=== PATIENT | female | born 2000 | race Caucasian/White ===

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

== ENCOUNTER 2018-11-24 17:50 | Emergency (ER) | payer OTHER ==
--- NOTE | 2018-11-24 18:23 | EDM.PDOC ---
ED HPI GENERAL MEDICAL PROBLEM - General Chief Complaint: Genitourinary Problem Stated Complaint: UTI Time Seen by Provider: 11/24/18 18:05 - History of Present Illness INITIAL COMMENTS - FREE TEXT/NARRATIVE: HISTORY AND PHYSICAL: History of present illness: Patient 18-year-old white female presents with concern of frequency discomfort with urination and hesitancy 2 days his been no fever chills nausea vomiting or other complaints Review of systems: As per history of present illness and below otherwise all systems reviewed and negative. Past medical history: As per history of present illness and as reviewed below otherwise noncontributory. Surgical history: As per history of present illness and as reviewed below otherwise noncontributory. Social history: No reported history of drug or alcohol abuse. Family history: As per history of present illness and as reviewed below otherwise noncontributory. Physical exam: HEENT: Atraumatic, normocephalic, pupils reactive, negative for conjunctival pallor or scleral icterus, mucous membranes moist, throat clear, neck supple, nontender, trachea midline. Lungs: Clear to auscultation, breath sounds equal bilaterally, chest nontender. Heart: S1S2, regular, negative for clicks, rubs, or JVD. Abdomen: Soft, nondistended, nontender. Negative for masses or hepatosplenomegaly. Negative for costovertebral tenderness. Pelvis: Stable nontender. Genitourinary: Deferred. Rectal: Deferred. Extremities: Atraumatic, negative for cords or calf pain. Neurovascular unremarkable. Neuro: Awake, alert, oriented. Cranial nerves II through XII unremarkable. Cerebellum unremarkable. Motor and sensory unremarkable throughout. Exam nonfocal. Diagnostics: UA UCG Therapeutics: None Impression: #1 UTI Definitive disposition and diagnosis as appropriate pending reevaluation and review of above. urinary Pain Score (Numeric/FACES): 7 - Related Data Allergies Allergy/AdvReac Type Severity Reaction Status Date / Time sumatriptan [From Imitrex] Allergy Tachycardia Verified 11/24/18 18:11 Home Meds: Home Meds . [No Known Home Meds] 12/27/17 [History] Past Medical History HEENT History: Reports: None Cardiovascular History: Reports: None Respiratory History: Reports: None Gastrointestinal History: Reports: None Genitourinary History: Reports: None COMPUTATIONAL MATHEMATICIAN History: Reports: None Musculoskeletal History: Reports: None Neurological History: Reports: None Psychiatric History: Reports: None Endocrine/Metabolic History: Reports: Other (See Below) Other Endocrine/Metabolic History: Angel's Hematologic History: Reports: None Immunologic History: Reports: None Oncologic (Cancer) History: Reports: None Dermatologic History: Reports: None - Past Surgical History Head Surgeries/Procedures: Reports: None HEENT Surgical History: Reports: Oral Surgery, Tonsillectomy Cardiovascular Surgical History: Reports: None Respiratory Surgical History: Reports: None GI Surgical History: Reports: None Female Surgical History: Reports: None Endocrine Surgical History: Reports: None Neurological Surgical History: Reports: None Musculoskeletal Surgical History: Reports: Other (See Below) Other Musculoskeletal Surgeries/Procedures:: surgery to her feet, 5x left, 2x Right Oncologic Surgical History: Reports: None Dermatological Surgical History: Reports: None Social & Family History - Family History Family Medical History: Noncontributory - Tobacco Use Smoking Status *Q: Never Smoker Second Hand Smoke Exposure: No - Caffeine Use Caffeine Use: Reports: None - Recreational Drug Use Recreational Drug Use: No ED ROS GENERAL - Review of Systems Review Of Systems: ROS reveals no pertinent complaints other than HPI. ED EXAM, GENERAL - Physical Exam Exam: See Below (See dictation) Course - Vital Signs Last Recorded V/S: Last Vital Signs Temp 37.6 C 11/24/18 18:10 Pulse 140 H 11/24/18 18:10 Resp 18 11/24/18 18:10 BP 143/98 H 11/24/18 18:10 Pulse Ox 95 11/24/18 18:10 - Orders/Labs/Meds Orders: Active Orders 24 hr Category Date Time Status CULTURE URINE [RM] Stat Lab 11/24/18 18:17 Ordered HCG QUALITATIVE,URINE [URCHEM] Stat Lab 11/24/18 18:18 Ordered UA RFX JENI AND CULT IF INDIC [URIN] Stat Lab 11/24/18 18:17 Ordered Meds: Medications Discontinued Medications Generic Name Dose Route Start Last Admin Trade Name Freq PRN Reason Stop Dose Admin Ketorolac Tromethamine 60 mg 11/24/18 18:56 Toradol IM 11/24/18 18:57 ONETIME ONE Phenazopyridine HCl 200 mg 11/24/18 18:56 Pyridium PO 11/24/18 18:57 ONETIME ONE Departure - Departure Time of Disposition: 19:00 Disposition: Home, Self-Care 01 Condition: Good Clinical Impression: UTI, Urinary tract infectious disease - Discharge Information Referrals: PCP,None [Primary Care Provider] - Forms: ED Department Discharge Additional Instructions: The following information is given to patients seen in the emergency department who are being discharged to home. This information is to outline your options for follow-up care. We provide all patients seen in our emergency department with a follow-up referral. The need for follow-up, as well as the timing and circumstances, are variable depending upon the specifics of your emergency department visit. If you don't have a primary care physician on staff, we will provide you with a referral. We always advise you to contact your personal physician following an emergency department visit to inform them of the circumstance of the visit and for follow-up with them and/or the need for any referrals to a consulting specialist. The emergency department will also refer you to a specialist when appropriate. This referral assures that you have the opportunity for followup care with a specialist. All of these measure are taken in an effort to provide you with optimal care, which includes your followup. Under all circumstances we always encourage you to contact your private physician who remains a resource for coordinating your care. When calling for followup care, please make the office aware that this follow-up is from your recent emergency room visit. If for any reason you are refused follow-up, please contact the [facility] emergency department at and asked to speak to the emergency department charge nurse. Pyridium Bactrim as prescribed follow-up primary medical doctor return as needed as discussed - My Orders Last 24 Hours: My Active Orders 11/24/18 18:17 CULTURE URINE [RM] Stat UA RFX JENI AND CULT IF INDIC [URIN] Stat 11/24/18 18:18 HCG QUALITATIVE,URINE [URCHEM] Stat - Assessment/Plan Last 24 Hours: My Active Orders 11/24/18 18:17 CULTURE URINE [RM] Stat UA RFX JENI AND CULT IF INDIC [URIN] Stat 11/24/18 18:18 HCG QUALITATIVE,URINE [URCHEM] Stat
[2018-11-24] MEDS ORDERED: Phenazopyridine 200 MG Tab PO ONE (18:56)
[2018-11-24] MEDS ORDERED: Ketorolac 60 MG/2 ML SDV IM ONE (18:56)
== END 2018-11-24 19:50 | disposition home or self-care (01) ==
LOC: MW.ED 17:50
DX: N39.0 Urinary tract infection, site not specified (principal); Z88.8 Allergy status to other drugs, medicaments and biological substances
CPT/HCPCS: 81001; 81025; 87086; 96372; 99283; A9270; J1885

== ENCOUNTER 2018-12-25 03:02 | Emergency (ER) | payer OTHER ==
[2018-12-25] MEDS ORDERED: Ondansetron 4 MG/2 ML SDV IVPUSH ONE (03:16)
[2018-12-25] MEDS ORDERED: Sodium Chloride 0.9% 1,000 ML IV ONE (03:16)
--- NOTE | 2018-12-25 03:16 | EDM.PDOC ---
ED HPI GENERAL MEDICAL PROBLEM - General Chief Complaint: Gastrointestinal Problem Stated Complaint: VOMITING Time Seen by Provider: 12/25/18 03:13 - History of Present Illness INITIAL COMMENTS - FREE TEXT/NARRATIVE: HISTORY AND PHYSICAL: History of present illness: Patient is a 18-year-old female presents with a concern of nausea and vomiting 2 days she denies abdominal pain fever chills vaginal discharge bleeding or other concerns she has currently undergoing fertility treatment. Review of systems: As per history of present illness and below otherwise all systems reviewed and negative. Past medical history: As per history of present illness and as reviewed below otherwise noncontributory. Surgical history: As per history of present illness and as reviewed below otherwise noncontributory. Social history: No reported history of drug or alcohol abuse. Family history: As per history of present illness and as reviewed below otherwise noncontributory. Physical exam: HEENT: Atraumatic, normocephalic, pupils reactive, negative for conjunctival pallor or scleral icterus, mucous membranes dry, throat clear, neck supple, nontender, trachea midline. Lungs: Clear to auscultation, breath sounds equal bilaterally, chest nontender. Heart: S1S2, regular, negative for clicks, rubs, or JVD. Abdomen: Soft, nondistended, nontender. Negative for masses or hepatosplenomegaly. Negative for costovertebral tenderness. Pelvis: Stable nontender. Genitourinary: Deferred. Rectal: Deferred. Extremities: Atraumatic, negative for cords or calf pain. Neurovascular unremarkable. Neuro: Awake, alert, oriented. Cranial nerves II through XII unremarkable. Cerebellum unremarkable. Motor and sensory unremarkable throughout. Exam nonfocal. Diagnostics: CBC CMP UA lipase hCG Therapeutics: Normal saline 1 L bolus Zofran 4 mg IV Impression: #1 vomiting #2 dehydration Definitive disposition and diagnosis as appropriate pending reevaluation and review of above. no pain Pain Score (Numeric/FACES): 0 - Related Data Allergies Allergy/AdvReac Type Severity Reaction Status Date / Time sumatriptan [From Imitrex] Allergy Tachycardia Verified 12/25/18 03:08 Home Meds: Home Meds . [No Known Home Meds] 12/27/17 [History] Past Medical History HEENT History: Reports: None Cardiovascular History: Reports: None Respiratory History: Reports: None Gastrointestinal History: Reports: None Genitourinary History: Reports: None AURICULAR ACUPUNCTURIST History: Reports: None Musculoskeletal History: Reports: None Neurological History: Reports: None Psychiatric History: Reports: None Endocrine/Metabolic History: Reports: Other (See Below) Other Endocrine/Metabolic History: Angel's Hematologic History: Reports: None Immunologic History: Reports: None Oncologic (Cancer) History: Reports: None Dermatologic History: Reports: None - Past Surgical History Head Surgeries/Procedures: Reports: None HEENT Surgical History: Reports: Oral Surgery, Tonsillectomy Cardiovascular Surgical History: Reports: None Respiratory Surgical History: Reports: None GI Surgical History: Reports: None Female Surgical History: Reports: None Endocrine Surgical History: Reports: None Neurological Surgical History: Reports: None Musculoskeletal Surgical History: Reports: Other (See Below) Other Musculoskeletal Surgeries/Procedures:: surgery to her feet, 5x left, 2x Right Oncologic Surgical History: Reports: None Dermatological Surgical History: Reports: None Social & Family History - Family History Family Medical History: Noncontributory - Caffeine Use Caffeine Use: Reports: None ED ROS GENERAL - Review of Systems Review Of Systems: ROS reveals no pertinent complaints other than HPI. ED EXAM, GENERAL - Physical Exam Exam: See Below Course - Vital Signs Last Recorded V/S: Last Vital Signs Temp 36.1 C 12/25/18 03:08 Pulse 126 H 12/25/18 03:08 Resp 18 12/25/18 03:08 BP 146/81 H 12/25/18 03:08 Pulse Ox 96 12/25/18 03:08 Departure - Departure Time of Disposition: 03:15 Disposition: Home, Self-Care 01 Condition: Good Clinical Impression: Vomiting, Dehydration - Discharge Information Referrals: PCP,None [Primary Care Provider] - Additional Instructions: The following information is given to patients seen in the emergency department who are being discharged to home. This information is to outline your options for follow-up care. We provide all patients seen in our emergency department with a follow-up referral. The need for follow-up, as well as the timing and circumstances, are variable depending upon the specifics of your emergency department visit. If you don't have a primary care physician on staff, we will provide you with a referral. We always advise you to contact your personal physician following an emergency department visit to inform them of the circumstance of the visit and for follow-up with them and/or the need for any referrals to a consulting specialist. The emergency department will also refer you to a specialist when appropriate. This referral assures that you have the opportunity for followup care with a specialist. All of these measure are taken in an effort to provide you with optimal care, which includes your followup. Under all circumstances we always encourage you to contact your private physician who remains a resource for coordinating your care. When calling for followup care, please make the office aware that this follow-up is from your recent emergency room visit. If for any reason you are refused follow-up, please contact the [facility] emergency department at and asked to speak to the emergency department charge nurse. Push fluids clear liquids 24 hours follow-up private medical doctor as needed as discussed return as needed as discussed Griceldafran as prescribed
[2018-12-25 03:53] LABS: CHLORIDE,CL 103 mmol/L (98-107); SODIUM,NA 139 mmol/L (136-145)
== END 2018-12-25 04:10 | disposition home or self-care (01) ==
LOC: MW.ED 03:02
DX: E86.0 Dehydration (principal); R11.2 Nausea with vomiting, unspecified; Z88.8 Allergy status to other drugs, medicaments and biological substances; Z98.890 Other specified postprocedural states
CPT/HCPCS: 36415; 80053; 81025; 83690; 85025; 96374; 99283; J2405; J7040

== ENCOUNTER 2019-07-29 00:18 | Emergency (ER) | payer OTHER ==
--- NOTE | 2019-07-29 01:30 | EDM.PDOC ---
ED HPI GENERAL MEDICAL PROBLEM - General Chief Complaint: General Stated Complaint: SOB Time Seen by Provider: 07/29/19 01:25 Source of Information: Reports: Patient History Limitations: Reports: No Limitations - History of Present Illness INITIAL COMMENTS - FREE TEXT/NARRATIVE: Old female presents the emergency room with a chief complaint of being woken up by her boyfriend because she was gasping while sleeping. Patient had no symptoms at all. Patient denies chest pain denies shortness of breath patient has a BMI of 40. Onset: Today Duration: Hour(s):, Improving Severity: Mild Improves with: Reports: None Worsens with: Reports: None Associated Symptoms: Reports: No Other Symptoms Chest Pain Score (Numeric/FACES): 2 - Related Data Allergies Allergy/AdvReac Type Severity Reaction Status Date / Time sumatriptan [From Imitrex] Allergy Tachycardia Verified 07/29/19 00:39 Home Meds: Home Meds . [No Known Home Meds] 12/27/17 [History] Past Medical History HEENT History: Reports: None Cardiovascular History: Reports: None Respiratory History: Reports: None Gastrointestinal History: Reports: None Genitourinary History: Reports: None AUDITOR SUPERVISOR History: Reports: Polycystic Ovaries Musculoskeletal History: Reports: None Neurological History: Reports: None Psychiatric History: Reports: None Endocrine/Metabolic History: Reports: Other (See Below) Other Endocrine/Metabolic History: Angel's Hematologic History: Reports: None Immunologic History: Reports: None Oncologic (Cancer) History: Reports: None Dermatologic History: Reports: None - Infectious Disease History Infectious Disease History: Reports: None - Past Surgical History Head Surgeries/Procedures: Reports: None HEENT Surgical History: Reports: Oral Surgery, Tonsillectomy Cardiovascular Surgical History: Reports: None Respiratory Surgical History: Reports: None GI Surgical History: Reports: None Female Surgical History: Reports: None Endocrine Surgical History: Reports: None Neurological Surgical History: Reports: None Musculoskeletal Surgical History: Reports: Other (See Below) Other Musculoskeletal Surgeries/Procedures:: surgery to her feet, 5x left, 2x Right Oncologic Surgical History: Reports: None Dermatological Surgical History: Reports: None Social & Family History - Family History Family Medical History: Noncontributory - Tobacco Use Smoking Status *Q: Never Smoker - Caffeine Use Caffeine Use: Reports: None - Recreational Drug Use Recreational Drug Use: No ED ROS GENERAL - Review of Systems Review Of Systems: See Below Constitutional: Reports: No Symptoms HEENT: Reports: No Symptoms Respiratory: Reports: No Symptoms Cardiovascular: Reports: No Symptoms Endocrine: Reports: No Symptoms GI/Abdominal: Reports: No Symptoms : Reports: No Symptoms Musculoskeletal: Reports: No Symptoms Skin: Reports: No Symptoms Neurological: Reports: No Symptoms Psychiatric: Reports: No Symptoms Hematologic/Lymphatic: Reports: No Symptoms Immunologic: Reports: No Symptoms ED EXAM, GENERAL - Physical Exam Exam: See Below Free Text/Narrative:: 19-year-old patient presents with being woken up because she was gasping while she was sleeping. Physical is noncontributory. Patient is overweight with a BMI of 40 Lungs are clear Her abdomen is soft extremities are normal Exam Limited By: No Limitations General Appearance: Alert, WD/WN, No Apparent Distress Eye Exam: Bilateral Eye: Normal Fundi, Normal Inspection, PERRL Nose: Normal Inspection, Normal Mucosa, No Blood Throat/Mouth: Normal Inspection, Normal Lips, Normal Teeth, Normal Oropharynx, Normal Voice Head: Atraumatic, Normocephalic Neck: Normal Inspection, Supple, Non-Tender Respiratory/Chest: No Respiratory Distress, Lungs Clear, Normal Breath Sounds, No Accessory Muscle Use, Chest Non-Tender Cardiovascular: Normal Peripheral Pulses, Regular Rate, Rhythm, No Edema, No Gallop, No JVD, No Murmur, No Rub GI/Abdominal: Normal Bowel Sounds (Female) Exam: Deferred Rectal (Female) Exam: Deferred Back Exam: Normal Inspection, Full Range of Motion Extremities: Normal Inspection, Normal Range of Motion, No Pedal Edema, Normal Capillary Refill Skin Exam: Warm, Intact, Normal Color EKG INTERPRETATION Rhythm: NSR [place]: Normal (Normal sinus rhythm no acute changes) Course - Vital Signs Last Recorded V/S: Last Vital Signs Temp 97.8 F 07/29/19 00:36 Pulse 97 07/29/19 00:36 Resp 16 07/29/19 00:36 BP 137/89 07/29/19 00:36 Pulse Ox 97 07/29/19 00:36 - Orders/Labs/Meds Orders: Active Orders 24 hr Category Date Time Status EKG 12 Lead [EKG Documentation Completion] [RC] STAT Care 07/29/19 00:44 Active Labs: Laboratory Tests 07/29/19 Range/Units 00:55 WBC 14.30 H (4.0-11.0) K/uL RBC 4.92 (4.30-5.90) M/uL Hgb 13.1 (12.0-16.0) g/dL Hct 39.7 (36.0-46.0) % MCV 80.7 (80.0-98.0) fL MCH 26.6 L (27.0-32.0) pg MCHC 33.0 (31.0-37.0) g/dL RDW Std Deviation 42.2 (28.0-62.0) fl RDW Coeff of Sofia 15 (11.0-15.0) % Plt Count 429 H (150-400) K/uL MPV 8.90 (7.40-12.00) fL Neut % (Auto) 62.5 (48.0-80.0) % Lymph % (Auto) 28.0 (16.0-40.0) % [place] % (Auto) 6.3 (0.0-15.0) % Eos % (Auto) 3.1 (0.0-7.0) % Baso % (Auto) 0.1 (0.0-1.5) % Neut # (Auto) 8.9 H (1.4-5.7) K/uL Lymph # (Auto) 4.0 H (0.6-2.4) K/uL [place] # (Auto) 0.9 H (0.0-0.8) K/uL Eos # (Auto) 0.5 (0.0-0.7) K/uL Baso # (Auto) 0.0 (0.0-0.1) K/uL Departure - Departure Time of Disposition: 01:32 Disposition: Home, Self-Care 01 Condition: Good Clinical Impression: Sleep apnea in adult - Discharge Information Instructions: Sleep Apnea, [id number] Referrals: PCP,None [Primary Care Provider] - Sepsis Event Note - Evaluation Sepsis Screening Result: No Definite Risk - Focused Exam Vital Signs: Vital Signs Temp Pulse Resp BP Pulse Ox 07/29/19 00:36 97.8 F 97 16 137/89 97 Date Exam was Performed: 07/29/19 Time Exam was Performed: 01:25 - My Orders Last 24 Hours: My Active Orders 07/29/19 00:44 EKG 12 Lead [EKG Documentation Completion] [RC] STAT - Assessment/Plan Last 24 Hours: My Active Orders 07/29/19 00:44 EKG 12 Lead [EKG Documentation Completion] [RC] STAT
== END 2019-07-29 01:47 | disposition home or self-care (01) ==
LOC: MW.ED 00:18
DX: G47.30 Sleep apnea, unspecified (principal); Z88.8 Allergy status to other drugs, medicaments and biological substances
CPT/HCPCS: 36415; 85025; 93005; 99282; 99285-25

== ENCOUNTER 2020-05-30 10:33 | Day surgery (SDC) | payer BC ==
[~2020-05-30 10:33] MED LIST: Lactated Ringers 1,000 ML IV SCH; Midazolam 1 MG/ML 2 ML SDV ONE; Propofol 200 MG/20 ML SDV ONE; fentaNYL 100 MCG/2 ML SDV ONE
--- NOTE | 2020-05-30 11:29 | PCM.PREANE ---
Preanesthetic Assessment - Anesthesia/Transfusion/Family Hx Other Type of Anesthesia Reaction Comment: intra op awakening during bunion surgery - prob MAC anesthesia Transfusion History: No Prior Transfusion(s) - Review of Systems General: No Symptoms Pulmonary: No Symptoms Cardiovascular: No Symptoms Gastrointestinal: No Symptoms Neurological: No Symptoms Other: Reports: None - Physical Assessment NPO Status Date: 05/29/20 Height: 5 ft 1 in Weight: 105.233 kg ASA Class: 2 Mental Status: Alert & Oriented x3 Airway Class: Mallampati = 2 Dentition: Reports: Normal Dentition ROM/Head Extension: Full Lungs: Clear to Auscultation, Normal Respiratory Effort Cardiovascular: Regular Rhythm, Tachycardia - Allergies Allergies/Adverse Reactions: Allergies Allergy/AdvReac Type Severity Reaction Status Date / Time sumatriptan [From Imitrex] Allergy Tachycardia Verified 05/24/20 13:31 - Anesthesia Plan Pre-Op Medication Ordered: None - Acknowledgements Anesthesia Type Planned: General Anesthesia Pt an Appropriate Candidate for the Planned Anesthesia: Yes Alternatives and Risks of Anesthesia Discussed w Pt/Guardian: Yes Pt/Guardian Understands and Agrees with Anesthesia Plan: Yes Additional Comments: PMH: PCOS, MO PLAN: ga/lma PreAnesthesia Questionnaire HEENT History: Reports: None Cardiovascular History: Reports: None Respiratory History: Reports: None Gastrointestinal History: Reports: None Genitourinary History: Reports: None HADOOP DEVELOPER History: Reports: Polycystic Ovaries Musculoskeletal History: Reports: None Neurological History: Reports: None Psychiatric History: Reports: Anxiety Endocrine/Metabolic History: Reports: Obesity/BMI 30+, Other (See Below) Other Endocrine/Metabolic History: hashimotos (presently does not take medicati on for this) Hematologic History: Reports: None Immunologic History: Reports: None Oncologic (Cancer) History: Reports: None Dermatologic History: Reports: None - Infectious Disease History Infectious Disease History: Reports: None - Past Surgical History Head Surgeries/Procedures: Reports: None HEENT Surgical History: Reports: Oral Surgery, Tonsillectomy Cardiovascular Surgical History: Reports: None Respiratory Surgical History: Reports: None GI Surgical History: Reports: None Female Surgical History: Reports: Other (See Below) Other Female Surgeries/Procedures: hysteroscopy for uterine septal resection Endocrine Surgical History: Reports: None Neurological Surgical History: Reports: None Musculoskeletal Surgical History: Reports: Other (See Below) Other Musculoskeletal Surgeries/Procedures:: surgery to her feet, 5x left, 2x Right Oncologic Surgical History: Reports: None Dermatological Surgical History: Reports: None - SUBSTANCE USE Tobacco Use Status *Q: Never Tobacco User - HOME MEDS Home Medications: Home Meds . [No Known Home Meds] 12/27/17 [History] - CURRENT (IN HOUSE) MEDS Current Meds: Current Medications Lactated Ringer's (Ringers, Lactated) 1,000 mls @ 100 mls/hr IV ASDIRECTED HORACE Discontinued Medications Fentanyl (Sublimaze) Confirm Administered Dose 100 mcg .ROUTE .STK-MED ONE Stop: 05/30/20 10:09 Acetaminophen (Ofirmev) Confirm Administered Dose 100 mls @ as directed .ROUTE .STK-MED ONE Stop: 05/30/20 11:24 Lidocaine HCl (Xylocaine-Mpf 1%) Confirm Administered Dose 5 ml .ROUTE .STK-MED ONE Stop: 05/30/20 10:09 Midazolam HCl (Versed 1 Mg/Ml) Confirm Administered Dose 2 mg .ROUTE .STK-MED ONE Stop: 05/30/20 10:09 Propofol (Diprivan 20 Ml) Confirm Administered Dose 200 mg .ROUTE .STK-MED ONE Stop: 05/30/20 10:09
[2020-05-30] MEDS ORDERED: Ketorolac 30 MG/ML SDV ONE (12:11)
[2020-05-30] MEDS ORDERED: Dexamethasone 4 MG/ML 5 ML MDV ONE (12:11)
[2020-05-30] MEDS ORDERED: Ondansetron 4 MG/2 ML SDV ONE (12:11)
[2020-05-30] MEDS ORDERED: Atropine 0.1 MG/ML 10 ML Syringe IVPUSH PRN ×2 (12:17)
[2020-05-30] MEDS ORDERED: Ondansetron 4 MG/2 ML SDV IVPUSH PRN (12:17)
[2020-05-30] MEDS ORDERED: Albuterol 0.083% 2.5 MG/3 ML Neb Soln NEB PRN (12:17)
[2020-05-30] MEDS ORDERED: Naloxone 0.4 MG/ML Syringe IVPUSH PRN (12:17)
[2020-05-30] MEDS ORDERED: 50% Dextrose in Water 50 ML Syringe IVPUSH PRN (12:17)
[2020-05-30] MEDS ORDERED: EPINEPHrine 1:10,000 1 MG/10 ML Syringe IVPUSH PRN (12:17)
[2020-05-30] MEDS ORDERED: Ketorolac 15 MG/ML SDV IM PRN (12:44)
[2020-05-30] MEDS: fentaNYL 100 MCG/2 ML SDV IVPUSH PRN ×2 (12:45→13:00)
[2020-05-30] MEDS: HYDROmorphone 2 MG/ML Syringe IVPUSH PRN ×3 (12:48→14:00)
--- NOTE | 2020-05-30 12:51 | PCM.OPNOTE ---
- General Post-Op/Procedure Note Date of Surgery/Procedure: 05/30/20 Operative Procedure(s): Diagnostic hysteroscopy. Dilation & curettage Findings: Remaining uterine septum Normal tubal ostia Normal-appearing endometrium and endocervical canal Pre Op Diagnosis: 20yo G0 with abnormal uterine bleeding and heavy menstrual bleeding. Failed medical management with OCPs, tranexamic acid, provera cycling, and OCP taper. PCOS Post-Op Diagnosis: 20yo G0 with abnormal uterine bleeding and heavy menstrual bleeding. Failed medical management with OCPs, tranexamic acid, provera cycling, and OCP taper. PCOS Anesthesia Technique: MAC Primary Surgeon: Rupa Kinney Anesthesia Provider: Yanni Ramirez Pathology: Endometrial curettings Fluid Replacement, Intraop: 600 EBL in mLs: 10 Complications: None Condition: Good Free Text/Narrative:: Hysteroscopy deficit 145cc NS
[2020-05-30] MEDS ORDERED: oxyCODONE 5 MG Tab PO ONE (13:28)
--- NOTE | 2020-05-30 14:20 | PCM48HPAN ---
Post Anesthesia Note - EVALUATION WITHIN 48HRS OF ANESTHETIC Vital Signs in Normal Range: Yes Patient Participated in Evaluation: Yes Respiratory Function Stable: Yes Airway Patent: Yes Cardiovascular Function Stable: Yes Hydration Status Stable: Yes Pain Control Satisfactory: Yes Nausea and Vomiting Control Satisfactory: Yes Mental Status Recovered: Yes Vital Signs: Last Vital Signs Temp 97.4 F 05/30/20 12:34 Pulse 86 05/30/20 13:10 Resp 13 05/30/20 13:10 BP 133/82 05/30/20 13:10 Pulse Ox 100 05/30/20 13:10
--- NOTE | 2020-05-30 14:20 | PCM.POSTAN ---
POST ANESTHESIA ASSESSMENT - MENTAL STATUS Mental Status: Alert, Oriented - VITAL SIGNS Vital Signs: Last Vital Signs Temp 97.4 F 05/30/20 12:34 Pulse 86 05/30/20 13:10 Resp 13 05/30/20 13:10 BP 133/82 05/30/20 13:10 Pulse Ox 100 05/30/20 13:10 - RESPIRATORY Respiratory Status: Respiratory Rate WNL, Airway Patent, O2 Saturation Stable - CARDIOVASCULAR CV Status: Pulse Rate WNL, Blood Pressure Stable - GASTROINTESTINAL GI Status: No Symptoms - POST OP HYDRATION Hydration Status: Adequate & Stable
--- NOTE | 2020-05-30 16:10 | OR ---
SURGEON: Rupa Kinney MD DATE OF PROCEDURE: 05/30/2020 PREOPERATIVE DIAGNOSES: 1. 20-year-old G0. 2. Heavy menstrual bleeding and abnormal uterine bleeding. 3. Polycystic ovarian syndrome. 4. Failed medical management with tranexamic acid, oral contraceptives, Provera cycling, and oral contraceptive taper. POSTOPERATIVE DIAGNOSES: 1. 20-year-old G0. 2. Heavy menstrual bleeding and abnormal uterine bleeding. 3. Polycystic ovarian syndrome. 4. Failed medical management with tranexamic acid, oral contraceptives, Provera cycling, and oral contraceptive taper. PROCEDURE: Diagnostic hysteroscopy with dilation and curettage. PRIMARY SURGEON: Rupa Kinney MD ANESTHESIA: MAC. COMPLICATIONS: None. ESTIMATED BLOOD LOSS: 10 mL. FLUIDS: 600 mL LR. URINE OUTPUT: Bladder drained prior to procedure. SPECIMEN: Endometrial curettings. HYSTEROSCOPY FLUID DEFICIT: 145 mL normal saline. FINDINGS: Hysteroscopy showed uterine cavity without polyps or fibroids. Evidence of septum. The bilateral tubal ostia appeared normal. DESCRIPTION OF PROCEDURE: The patient was taken to the operating room where MAC was administered without difficulty. She was placed in dorsal lithotomy position, was placed in [facility]. She was prepared and draped in normal sterile fashion. A Graves speculum was inserted into the vagina. An Allis clamp was used to grasp the anterior lip of the cervix. The uterus was sounded to 8 cm. The cervical os was sequentially dilated to accommodate a 5 mm hysteroscope using Hegar dilators. A 5 mm hysteroscope was introduced under direct visualization and the uterus distended with normal saline. Aforementioned findings were noted. The hysteroscope was then withdrawn and the cervix was further dilated to accommodate a large curette. The uterus was curetted until a gritty texture was noted in all aspects of the uterus. The Allis clamp was removed from the cervix and good hemostasis was noted. The patient tolerated the procedure well. All instrument and sponge counts were correct. The patient was awakened and taken to the recovery room in stable condition. ОЛЬГА / JEANE /[id number] MTDD
== END 2020-05-30 14:25 | disposition home or self-care (01) ==
LOC: MW.SDS 10:33
PROVIDERS: ATTEND Obstetrics & Gynecology
DX: N85.8 Other specified noninflammatory disorders of uterus (principal); N92.0 Excessive and frequent menstruation with regular cycle; E28.2 Polycystic ovarian syndrome; E66.9 Obesity, unspecified; F41.9 Anxiety disorder, unspecified; Z68.41 Body mass index [BMI] 40.0-44.9, adult; Z79.899 Other long term (current) drug therapy; Z98.890 Other specified postprocedural states; Z88.8 Allergy status to other drugs, medicaments and biological substances
CPT/HCPCS: 36415; 58558; 81025; 85027; 88305; A9270; J0131; J1100; J1170; J1885; J2001; J2250; J2704; J3010; J7120; 00952; J2405

== ENCOUNTER 2020-12-29 23:01 | Emergency (ER) | payer BC ==
[2020-12-30] MEDS ORDERED: predniSONE 10 MG Tab PO ONE (00:27)
[2020-12-30] MEDS ORDERED: hydrOXYzine HCl 25 MG Tab PO ONE (00:27)
--- NOTE | 2020-12-30 00:30 | EDM.PDOC ---
ED HPI GENERAL MEDICAL PROBLEM - General Chief Complaint: Skin Complaint Stated Complaint: LUMPS ON STOMACH Time Seen by Provider: 12/30/20 00:28 Source of Information: Reports: Patient History Limitations: Reports: No Limitations - History of Present Illness INITIAL COMMENTS - FREE TEXT/NARRATIVE: Patient is a 20-year-old female who presents today for rash to her abdomen. Heidy limon had a bariatric surgery a few days ago and had tape and some iodine to the area since then she has had hives that appeared itchy. Patient tried Benadryl at home as well as topical steroids without relief. Patient presents today because the itchiness is intense. Patient denies any difficulty swallowing or breathing. Patient is tolerating liquids after the surgery. Patient has no redness in her drainage around the surgical site areas. - Related Data Allergies Allergy/AdvReac Type Severity Reaction Status Date / Time sumatriptan [From Imitrex] Allergy Tachycardia Verified 12/30/20 00:18 Home Meds: Home Meds Pantoprazole [ProTONIX] 40 mg PO DAILY 12/30/20 [History] Past Medical History HEENT History: Reports: None Cardiovascular History: Reports: None Respiratory History: Reports: None Gastrointestinal History: Reports: None Genitourinary History: Reports: None MARKET RISK SPECIALIST History: Reports: Polycystic Ovaries Musculoskeletal History: Reports: None Neurological History: Reports: None Psychiatric History: Reports: Anxiety Endocrine/Metabolic History: Reports: Obesity/BMI 30+, Other (See Below) Other Endocrine/Metabolic History: hashimotos (presently does not take medication for this) Hematologic History: Reports: None Immunologic History: Reports: None Oncologic (Cancer) History: Reports: None Dermatologic History: Reports: None - Infectious Disease History Infectious Disease History: Reports: None - Past Surgical History Head Surgeries/Procedures: Reports: None HEENT Surgical History: Reports: Oral Surgery, Tonsillectomy Cardiovascular Surgical History: Reports: None Respiratory Surgical History: Reports: None GI Surgical History: Reports: Bariatric Procedure Female Surgical History: Reports: Other (See Below) Other Female Surgeries/Procedures: hysteroscopy for uterine septal resection Endocrine Surgical History: Reports: None Neurological Surgical History: Reports: None Musculoskeletal Surgical History: Reports: Other (See Below) Other Musculoskeletal Surgeries/Procedures:: surgery to her feet, 5x left, 2x Right Oncologic Surgical History: Reports: None Dermatological Surgical History: Reports: None Social & Family History - Family History Family Medical History: No Pertinent Family History - Tobacco Use Tobacco Use Status *Q: Never Tobacco User - Caffeine Use Caffeine Use: Reports: None - Recreational Drug Use Recreational Drug Use: No ED ROS GENERAL - Review of Systems Review Of Systems: See Below Constitutional: Reports: No Symptoms HEENT: Reports: No Symptoms Respiratory: Reports: No Symptoms Cardiovascular: Reports: No Symptoms Endocrine: Reports: No Symptoms GI/Abdominal: Reports: No Symptoms : Reports: No Symptoms Musculoskeletal: Reports: No Symptoms Skin: Reports: Rash Neurological: Reports: No Symptoms Psychiatric: Reports: No Symptoms Hematologic/Lymphatic: Reports: No Symptoms Immunologic: Reports: No Symptoms ED EXAM, SKIN/RASH Exam: See Below Exam Limited By: No Limitations General Appearance: Alert Respiratory/Chest: No Respiratory Distress Cardiovascular: Normal Peripheral Pulses GI/Abdominal: Normal Bowel Sounds, Soft, Non-Tender, Other (hives to abd ) Neurological: Alert, Oriented Skin: Rash (to abd only ) Course - Vital Signs Last Recorded V/S: Last Vital Signs Temp 97 F 12/30/20 00:18 Pulse 92 12/30/20 00:18 Resp 20 12/30/20 00:18 BP 110/76 12/30/20 00:18 Pulse Ox 96 12/30/20 00:18 - Orders/Labs/Meds Labs: Laboratory Tests 12/30/20 12/30/20 Range/Units 00:55 00:55 WBC 11.97 H (4.0-11.0) K/uL RBC 4.43 (4.30-5.90) M/uL Hgb 10.4 L (12.0-16.0) g/dL Hct 33.0 L (36.0-46.0) % MCV 74.5 L (80.0-98.0) fL MCH 23.5 L (27.0-32.0) pg MCHC 31.5 (31.0-37.0) g/dL RDW Std Deviation 40.0 (28.0-62.0) fl RDW Coeff of Sofia 15 (11.0-15.0) % Plt Count 497 H (150-400) K/uL MPV 8.70 (7.40-12.00) fL Neut % (Auto) 61.5 (48.0-80.0) % Lymph % (Auto) 23.9 (16.0-40.0) % [place] % (Auto) 6.7 (0.0-15.0) % Eos % (Auto) 7.7 H (0.0-7.0) % Baso % (Auto) 0.2 (0.0-1.5) % Neut # (Auto) 7.4 H (1.4-5.7) K/uL Lymph # (Auto) 2.9 H (0.6-2.4) K/uL [place] # (Auto) 0.8 (0.0-0.8) K/uL Eos # (Auto) 0.9 H (0.0-0.7) K/uL Baso # (Auto) 0.0 (0.0-0.1) K/uL Sodium 138 (136-145) mmol/L Potassium 3.6 (3.5-5.1) mmol/L Chloride 101 (98-107) mmol/L Carbon Dioxide 25.0 (21.0-32.0) mmol/L BUN 10 (7.0-18.0) mg/dL Creatinine 0.7 (0.6-1.0) mg/dL Est Cr Clr Drug Dosing 99.70 mL/min Estimated GFR (MDRD) > 60.0 ml/min Glucose 78 (74-106) mg/dL Calcium 8.7 (8.5-10.1) mg/dL Creatine Kinase 93 (26-308) U/L Meds: Medications Discontinued Medications Generic Name Dose Route Start Last Admin Trade Name Freq PRN Reason Stop Dose Admin Hydroxyzine HCl 25 mg 12/30/20 00:27 12/30/20 00:43 Hydroxyzine Hcl 25 Mg Tab PO 12/30/20 00:28 25 mg ONETIME ONE Administration Prednisone 40 mg 12/30/20 00:27 12/30/20 00:42 Prednisone 10 Mg Tab PO 12/30/20 00:28 40 mg ONETIME ONE Administration - Re-Assessments/Exams Free Text/Narrative Re-Assessment/Exam: 12/30/20 01:40 Patients redness and itchiness has improved patient be discharged prescription for steroids and Atarax. Departure - Departure Time of Disposition: 01:40 Disposition: Home, Self-Care 01 Condition: Good Clinical Impression: Contact dermatitis - Discharge Information *PRESCRIPTION DRUG MONITORING PROGRAM REVIEWED*: Not Applicable *COPY OF PRESCRIPTION DRUG MONITORING REPORT IN PATIENT JAKI: Not Applicable Instructions: Contact Dermatitis, [id number] Referrals: Holly Cho DO [Primary Care Provider] - Forms: ED Department Discharge Additional Instructions: The following information is given to patients seen in the emergency department who are being discharged to home. This information is to outline your options for follow-up care. We provide all patients seen in our emergency department with a follow-up referral. The need for follow-up, as well as the timing and circumstances, are variable depending upon the specifics of your emergency department visit. If you don't have a primary care physician on staff, we will provide you with a referral. We always advise you to contact your personal physician following an emergency department visit to inform them of the circumstance of the visit and for follow-up with them and/or the need for any referrals to a consulting specialist. The emergency department will also refer you to a specialist when appropriate. This referral assures that you have the opportunity for follow-up care with a specialist. All of these measure are taken in an effort to provide you with optimal care, which includes your follow-up. Under all circumstances we always encourage you to contact your private physician who remains a resource for coordinating your care. When calling for follow-up care, please make the office aware that this follow-up is from your recent emergency room visit. If for any reason you are refused follow-up, please contact the [facility] Emergency Department at and asked to speak to the emergency department charge nurse. Please follow up with your primary care physician. If you do not have a primary care physician, see below: [facility] [address] [place] [id number] [facility] [address] [place] [id number] You are seen today for a rash to your abdomen likely related to the tape with iodine from your previous surgery. We sent you home with steroids and some Atarax for the itchiness. If the rash continues to spread or you have any trouble swallowing or breathing please return to the ED immediately otherwise follow-up with your primary care physician. Sepsis Event Note (ED) - Evaluation Sepsis Screening Result: No Definite Risk - Focused Exam Vital Signs: Vital Signs Temp Pulse Resp BP Pulse Ox 12/30/20 00:18 97 F 92 20 110/76 96 - Assessment/Plan Plan: Is a 20-year-old female presents today for rash to her abdomen. The rash is localized to the abdomen only. Likely related to the adhesive tape or iodine after surgery. Patient has no systemic symptoms. Will give steroids Atarax and reassess.
[2020-12-30 01:22] LABS: BLOOD UREA NITROGEN,BUN 10 mg/dL (7.0-18.0); CHLORIDE,CL 101 mmol/L (98-107); GLUCOSE RANDOM 78 mg/dL (74-106); POTASSIUM,K 3.6 mmol/L (3.5-5.1); SODIUM,NA 138 mmol/L (136-145)
== END 2020-12-30 02:11 | disposition home or self-care (01) ==
LOC: MW.ED 23:01
DX: L25.9 Unspecified contact dermatitis, unspecified cause (principal); E66.9 Obesity, unspecified; Z68.39 Body mass index [BMI] 39.0-39.9, adult; Z88.8 Allergy status to other drugs, medicaments and biological substances
CPT/HCPCS: 36415; 80048; 82550; 85025; 99283; A9270; 99282

== ENCOUNTER 2021-04-26 12:53 | Emergency (ER) | payer BC ==
[2021-04-26] MEDS ORDERED: Sodium Chloride 0.9% 10 ML Syringe FLUSH PRN (13:04)
[2021-04-26] MEDS ORDERED: Sodium Chloride 0.9% 2.5 ML Syringe FLUSH PRN (13:04)
--- NOTE | 2021-04-26 13:10 | EDM.PDOC ---
ED HPI GENERAL MEDICAL PROBLEM - General Chief Complaint: ORCHARDIST Problem Stated Complaint: DR SENT PT HERE FOR BLEEDING Time Seen by Provider: 04/26/21 12:58 - History of Present Illness INITIAL COMMENTS - FREE TEXT/NARRATIVE: History of present illness: [] [facility] doctor called me before the patient arrived and said that she had been hemorrhaging. She has a history of menorrhagia requiring transfusion and TXA. According to the provider this patient has been hemorrhaging for 4 days. She was recently started on contraceptives with an effort to control her menorrhagia. In June of last year she required a D&C because of excessive hemorrhage. Patient says she is bleeding for days. The last time I saw her she was here for vague dizziness and at that time she was on fertility drugs. Now she says she is so tired of having recurrent menorrhagia that she would rather have a hysterectomy then have babies. She seems well adjusted and quite accepting of the fact that she is going to have trouble if she does not go ahead and have something more done. She is somewhat lightheaded intermittently now and has been bleeding for 5 days heavily. Review of systems: As per history of present illness and below otherwise all systems reviewed and negative. Past medical history: As per history of present illness and as reviewed below otherwise noncontributory. Surgical history: As per history of present illness and as reviewed below otherwise noncontributory. Social history: No reported history of drug or alcohol abuse. Family history: As per history of present illness and as reviewed below otherwise noncontributory. Physical exam: Constitutional - well developed, well-nourished and in no acute distress HEENT - normocephalic, no evidence of trauma - external nose and mouth normal - no mass in neck and no JVD - mucosae moist EYES -conjunctiva pale-full EOM, PERRL, no icterus - no evidence of inflammation, injection, or drainage Respiratory - no respiratory distress, equal bilateral expansion, lungs clear to auscultation and no abnormal lung sounds Cardiovascular - Regular Rhythm with S1 and S2 appreciated and no murmur, gallop or rub. GI - abdomen soft without distension or organomegaly - normal bowel sounds - no guard or rebound Musculoskeletal no gross deformity of long bones or joints - no tenderness, swelling or edema Neurologic - Alert and oriented times four - CN II-XII grossly intact - motor sensory and coordination symmetrically normal Psychiatric - appropriate mood and affect with normal thought content Hematologic - No petechiae or purpura - mucosa appropriate color and sclera not pale - normal nail bed color and refill Integument - no rash or evidence of trauma - normal turgor Diagnostics: [] Therapeutics: [] Impression: [] Plan: [] Definitive disposition and diagnosis as appropriate pending reevaluation and review of above. - Related Data Allergies Allergy/AdvReac Type Severity Reaction Status Date / Time sumatriptan [From Imitrex] Allergy Tachycardia Verified 04/26/21 13:17 Home Meds: Home Meds Pantoprazole [ProTONIX] 40 mg PO DAILY 12/30/20 [History] hydrOXYzine HCL [Hydroxyzine HCl] 25 mg PO BID 4 Days #8 tablet 12/30/20 [Rx] predniSONE 40 mg PO DAILY 4 Days #4 tab 12/30/20 [Rx] Tranexamic Acid [Lysteda] 1.3 gram PO DAILY 5 Days #5 tablet 04/26/21 [Rx] Past Medical History HEENT History: Reports: None Cardiovascular History: Reports: None Respiratory History: Reports: None Gastrointestinal History: Reports: None Genitourinary History: Reports: None ORCHARDIST History: Reports: Polycystic Ovaries Musculoskeletal History: Reports: None Neurological History: Reports: None Psychiatric History: Reports: Anxiety Endocrine/Metabolic History: Reports: Obesity/BMI 30+, Other (See Below) Other Endocrine/Metabolic History: hashimotos (presently does not take medication for this) Hematologic History: Reports: None Immunologic History: Reports: None Oncologic (Cancer) History: Reports: None Dermatologic History: Reports: None - Infectious Disease History Infectious Disease History: Reports: None - Past Surgical History Head Surgeries/Procedures: Reports: None HEENT Surgical History: Reports: Oral Surgery, Tonsillectomy Cardiovascular Surgical History: Reports: None Respiratory Surgical History: Reports: None GI Surgical History: Reports: Bariatric Procedure Female Surgical History: Reports: Other (See Below) Other Female Surgeries/Procedures: hysteroscopy for uterine septal resection Endocrine Surgical History: Reports: None Neurological Surgical History: Reports: None Musculoskeletal Surgical History: Reports: Other (See Below) Other Musculoskeletal Surgeries/Procedures:: surgery to her feet, 5x left, 2x Right Oncologic Surgical History: Reports: None Dermatological Surgical History: Reports: None Social & Family History - Family History Family Medical History: No Pertinent Family History - Caffeine Use Caffeine Use: Reports: None ED ROS GENERAL - Review of Systems Review Of Systems: Comprehensive ROS is negative, except as noted in HPI. ED EXAM, GENERAL - Physical Exam Exam: See Below Free Text/Narrative:: My physical exam is in the HPI Course - Vital Signs Text/Narrative:: 1433 hrs. I have discussed the case with Dr. Ortega who said if the patient's not bleeding briskly and not significantly orthostatic that she should go on TXA oral for 5 days. The patient has not changed her diaper while she is here. Plan a pelvic exam to make sure she not bleeding a great deal and then probable discharge. 1443 pelvic exam-BUS normal-speculum exam there is dark blood but not excessive amounts in the uterus. Bimanual exam no tenderness or enlargement of uterus or adnexa. Last Recorded V/S: Last Vital Signs Temp 37.3 C 04/26/21 13:14 Pulse 80 04/26/21 14:24 Resp 18 04/26/21 14:24 BP 112/71 04/26/21 14:24 Pulse Ox 98 04/26/21 14:24 - Orders/Labs/Meds Orders: Active Orders 24 hr Category Date Time Status TYPE AND SCREEN [BBK] Stat Lab 04/26/21 13:53 Received Sodium Chloride 0.9% [Normal Saline] 1,000 ml Med 04/26/21 13:15 Active IV ASDIRECTED Sodium Chloride 0.9% [Saline Flush] Med 04/26/21 13:04 Active 10 ml FLUSH ASDIRECTED PRN Sodium Chloride 0.9% [Saline Flush] Med 04/26/21 13:04 Active 2.5 ml FLUSH ASDIRECTED PRN Saline Lock Insert [OM.PC] Stat Oth 04/26/21 13:04 Ordered Medication Orders Sodium Chloride (Normal Saline) 1,000 mls @ 150 mls/hr IV ASDIRECTED HORACE Last Admin: 04/26/21 13:29 Dose: 150 mls/hr Documented by: OSIEL Sodium Chloride (Sodium Chloride 0.9% 10 Ml Syringe) 10 ml FLUSH ASDIRECTED PRN PRN Reason: Keep Vein Open Last Admin: 04/26/21 13:29 Dose: 10 ml Documented by: OSIEL Sodium Chloride (Sodium Chloride 0.9% 2.5 Ml Syringe) 2.5 ml FLUSH ASDIRECTED PRN PRN Reason: Keep Vein Open Last Admin: 04/26/21 13:29 Dose: 2.5 ml Documented by: OSIEL Labs: Laboratory Tests 04/26/21 04/26/21 04/26/21 Range/Units 13:31 13:31 13:31 WBC 11.76 H (4.0-11.0) K/uL RBC 4.43 (4.30-5.90) M/uL Hgb 10.0 L (12.0-16.0) g/dL Hct 32.7 L (36.0-46.0) % MCV 73.8 L (80.0-98.0) fL MCH 22.6 L (27.0-32.0) pg MCHC 30.6 L (31.0-37.0) g/dL RDW Std Deviation 42.4 (28.0-62.0) fl RDW Coeff of Sofia 16 H (11.0-15.0) % Plt Count 532 H (150-400) K/uL MPV 9.40 (7.40-12.00) fL Neut % (Auto) 66.5 (48.0-80.0) % Lymph % (Auto) 23.5 (16.0-40.0) % [place] % (Auto) 7.2 (0.0-15.0) % Eos % (Auto) 2.6 (0.0-7.0) % Baso % (Auto) 0.2 (0.0-1.5) % Neut # (Auto) 7.8 H (1.4-5.7) K/uL Lymph # (Auto) 2.8 H (0.6-2.4) K/uL [place] # (Auto) 0.9 H (0.0-0.8) K/uL Eos # (Auto) 0.3 (0.0-0.7) K/uL Baso # (Auto) 0.0 (0.0-0.1) K/uL INR 0.99 APTT 24.3 (18.6-31.3) SEC Sodium 141 (136-145) mmol/L Potassium 4.0 (3.5-5.1) mmol/L Chloride 106 (98-107) mmol/L Carbon Dioxide 24.6 (21.0-32.0) mmol/L BUN 12 (7.0-18.0) mg/dL Creatinine 0.6 (0.6-1.0) mg/dL Est Cr Clr Drug Dosing 110.98 mL/min Estimated GFR (MDRD) > 60.0 ml/min Glucose 93 (74-106) mg/dL Calcium 9.0 (8.5-10.1) mg/dL Total Bilirubin 0.3 (0.2-1.0) mg/dL AST 14 L (15-37) IU/L ALT 26 (14-63) IU/L Alkaline Phosphatase 82 (46-116) U/L Total Protein 8.3 H (6.4-8.2) g/dL Albumin 3.6 (3.4-5.0) g/dL Globulin 4.7 H (2.6-4.0) g/dL Albumin/Globulin Ratio 0.8 L (0.9-1.6) HCG, Qual (NEG) 04/26/21 Range/Units 13:31 WBC (4.0-11.0) K/uL RBC (4.30-5.90) M/uL Hgb (12.0-16.0) g/dL Hct (36.0-46.0) % MCV (80.0-98.0) fL MCH (27.0-32.0) pg MCHC (31.0-37.0) g/dL RDW Std Deviation (28.0-62.0) fl RDW Coeff of Sofia (11.0-15.0) % Plt Count (150-400) K/uL MPV (7.40-12.00) fL Neut % (Auto) (48.0-80.0) % Lymph % (Auto) (16.0-40.0) % [place] % (Auto) (0.0-15.0) % Eos % (Auto) (0.0-7.0) % Baso % (Auto) (0.0-1.5) % Neut # (Auto) (1.4-5.7) K/uL Lymph # (Auto) (0.6-2.4) K/uL [place] # (Auto) (0.0-0.8) K/uL Eos # (Auto) (0.0-0.7) K/uL Baso # (Auto) (0.0-0.1) K/uL INR APTT (18.6-31.3) SEC Sodium (136-145) mmol/L Potassium (3.5-5.1) mmol/L Chloride (98-107) mmol/L Carbon Dioxide (21.0-32.0) mmol/L BUN (7.0-18.0) mg/dL Creatinine (0.6-1.0) mg/dL Est Cr Clr Drug Dosing mL/min Estimated GFR (MDRD) ml/min Glucose (74-106) mg/dL Calcium (8.5-10.1) mg/dL Total Bilirubin (0.2-1.0) mg/dL AST (15-37) IU/L ALT (14-63) IU/L Alkaline Phosphatase (46-116) U/L Total Protein (6.4-8.2) g/dL Albumin (3.4-5.0) g/dL Globulin (2.6-4.0) g/dL Albumin/Globulin Ratio (0.9-1.6) HCG, Qual NEGATIVE (NEG) Meds: Medications Generic Name Dose Route Start Last Admin Trade Name Freq PRN Reason Stop Dose Admin Sodium Chloride 1,000 mls @ 150 mls/hr 04/26/21 13:15 04/26/21 13:29 Normal Saline IV 150 mls/hr ASDIRECTED HORACE Administration Sodium Chloride 10 ml 04/26/21 13:04 04/26/21 13:29 Sodium Chloride 0.9% 10 Ml Syringe FLUSH 10 ml ASDIRECTED PRN Administration Keep Vein Open Sodium Chloride 2.5 ml 04/26/21 13:04 04/26/21 13:29 Sodium Chloride 0.9% 2.5 Ml Syringe FLUSH 2.5 ml ASDIRECTED PRN Administration Keep Vein Open Departure - Departure Time of Disposition: 14:43 Disposition: Home, Self-Care 01 Condition: Good Clinical Impression: Menorrhagia - Discharge Information Prescriptions: Tranexamic Acid [Lysteda] 1.3 gram PO DAILY 5 Days #5 tablet Instructions: Metrorrhagia, [id number] Referrals: PCP,None [Primary Care Provider] - Forms: ED Department Discharge Additional Instructions: Return if dizzy lightheaded passing great deal of blood or fever. [facility] [address] [place] [address] [facility] [address] [place] [id number] The following information is given to patients seen in the emergency department who are being discharged to home. This information is to outline your options for follow-up care. We provide all patients seen in our emergency department with a follow-up referral. The need for follow-up, as well as the timing and circumstances, are variable depending upon the specifics of your emergency department visit. If you don't have a primary care physician on staff, we will provide you with a referral. We always advise you to contact your personal physician following an emergency department visit to inform them of the circumstance of the visit and for follow-up with them and/or the need for any referrals to a consulting specialist. The emergency department will also refer you to a specialist when appropriate. This referral assures that you have the opportunity for follow-up care with a specialist. All of these measure are taken in an effort to provide you with optimal care, which includes your follow-up. Under all circumstances we always encourage you to contact your private physician who remains a resource for coordinating your care. When calling for follow-up care, please make the office aware that this follow-up is from your recent emergency room visit. If for any reason you are refused follow-up, please contact the [facility] Emergency Department at and asked to speak to the emergency department charge nurse. Sepsis Event Note (ED) - Focused Exam Vital Signs: Vital Signs Temp Pulse Resp BP Pulse Ox 04/26/21 14:24 80 18 112/71 98 04/26/21 13:33 81 18 108/66 98 04/26/21 13:14 37.3 C 77 18 129/84 98 - My Orders Last 24 Hours: My Active Orders 04/26/21 13:04 Sodium Chloride 0.9% [Saline Flush] 10 ml FLUSH ASDIRECTED PRN Sodium Chloride 0.9% [Saline Flush] 2.5 ml FLUSH ASDIRECTED PRN Saline Lock Insert [OM.PC] Stat 04/26/21 13:15 Sodium Chloride 0.9% [Normal Saline] 1,000 ml IV ASDIRECTED 04/26/21 13:53 TYPE AND SCREEN [BBK] Stat - Assessment/Plan Last 24 Hours: My Active Orders 04/26/21 13:04 Sodium Chloride 0.9% [Saline Flush] 10 ml FLUSH ASDIRECTED PRN Sodium Chloride 0.9% [Saline Flush] 2.5 ml FLUSH ASDIRECTED PRN Saline Lock Insert [OM.PC] Stat 04/26/21 13:15 Sodium Chloride 0.9% [Normal Saline] 1,000 ml IV ASDIRECTED 04/26/21 13:53 TYPE AND SCREEN [BBK] Stat
[2021-04-26] MEDS ORDERED: Sodium Chloride 0.9% 1,000 ML IV SCH (13:15)
[2021-04-26 14:03] LABS: BLOOD UREA NITROGEN,BUN 12 mg/dL (7.0-18.0); CARBON DIOXIDE,CO2 24.6 mmol/L (21.0-32.0); CHLORIDE,CL 106 mmol/L (98-107); GLUCOSE RANDOM 93 mg/dL (74-106); SODIUM,NA 141 mmol/L (136-145)
== END 2021-04-26 14:57 | disposition home or self-care (01) ==
LOC: MW.ED 12:53
DX: N92.0 Excessive and frequent menstruation with regular cycle (principal); E66.9 Obesity, unspecified; Z88.8 Allergy status to other drugs, medicaments and biological substances; Z68.34 Body mass index [BMI] 34.0-34.9, adult
CPT/HCPCS: 36415; 80053; 84703; 85025; 85610; 85730; 86850; 86900; 86901; 99284; J7030

== ENCOUNTER 2021-08-17 14:26 | Emergency (ER) | payer BC ==
[2021-08-17] MEDS ORDERED: Sodium Chloride 0.9% 1,000 ML IV ONE (14:59)
[2021-08-17 15:36] LABS: BLOOD UREA NITROGEN,BUN 14 mg/dL (7.0-18.0); CHLORIDE,CL 104 mmol/L (98-107); GLUCOSE RANDOM 104 mg/dL (74-106); LIPASE 125 U/L (73-393); POTASSIUM,K 4.3 mmol/L (3.5-5.1); SODIUM,NA 141 mmol/L (136-145)
[2021-08-17] MEDS ORDERED: Iopamidol 755 MG/ML 500 ML Multipack Bottle IVPUSH ONE (18:40)
== END 2021-08-17 17:50 | disposition home or self-care (01) ==
LOC: MW.ED 14:26
DX: R10.9 Unspecified abdominal pain (principal); E66.9 Obesity, unspecified; Z68.28 Body mass index [BMI] 28.0-28.9, adult; Z88.8 Allergy status to other drugs, medicaments and biological substances; Z79.899 Other long term (current) drug therapy
CPT/HCPCS: 36415; 71045; 71045-26; 74177; 74177-26; 80053; 81003; 81025; 83690; 84484; 85025; 93005; 99284-25; J7030; Q9967

== ENCOUNTER 2021-12-13 18:23 | Emergency (ER) | payer BC ==
[2021-12-13] MEDS ORDERED: Diphtheria,Pertussis(Acell),Tetanus Vaccine 0.5 ML Syringe IM ONE (18:24)
[2021-12-13] MEDS ORDERED: Octyl 2-Cyanoacrylate 1 Tube TOP ONE (20:23)
== END 2021-12-13 20:41 | disposition home or self-care (01) ==
LOC: MW.ED 18:23
DX: S91.112A Laceration without foreign body of left great toe without damage to nail, initial encounter (principal); E66.9 Obesity, unspecified; Z68.27 Body mass index [BMI] 27.0-27.9, adult; Z23 Encounter for immunization; Z88.8 Allergy status to other drugs, medicaments and biological substances; W20.8XXA Other cause of strike by thrown, projected or falling object, initial encounter
CPT/HCPCS: 12001; 73660; 90471; 90715; 99283; A9270

== ENCOUNTER 2022-04-10 21:02 | Emergency (ER) | payer BC ==
[2022-04-10 23:05] LABS: CARBON DIOXIDE,CO2 21.9 mmol/L (21.0-32.0); POTASSIUM,K 3.8 mmol/L (3.5-5.1)
== END 2022-04-11 00:35 | disposition home or self-care (01) ==
LOC: MW.ED 21:02
DX: O23.42 Unspecified infection of urinary tract in pregnancy, second trimester (principal); Z3A.19 19 weeks gestation of pregnancy; E66.9 Obesity, unspecified; Z68.29 Body mass index [BMI] 29.0-29.9, adult; Z88.8 Allergy status to other drugs, medicaments and biological substances
CPT/HCPCS: 36415; 80053; 81001; 83735; 85025; 87086; 93005; 99284

== ENCOUNTER 2022-10-23 16:57 | Observation (INO) | payer BC ==
[2022-10-23] MEDS ORDERED: Sodium Chloride 0.9% 1,000 ML IV ONE ×2 (17:32→19:36)
[2022-10-23 18:59] LABS: POTASSIUM,K 2.7 mmol/L (3.5-5.1)
[2022-10-23] MEDS: Potassium Chloride 100 ML IV SCH ×2 (20:04→23:00)
[2022-10-23 20:17] LABS: CORONAVIRUS COVID-19 NAA NEGATIVE (NEGATIVE); INFLUENZA A NAA NEGATIVE (NEGATIVE); INFLUENZA B NAA NEGATIVE (NEGATIVE)
[2022-10-23] MEDS ORDERED: Sodium Chloride 0.9% 2.5 ML Syringe FLUSH PRN (21:14)
[2022-10-23] MEDS ORDERED: Sodium Chloride 0.9% 10 ML Syringe FLUSH PRN (21:14)
[2022-10-24] MEDS ORDERED: Potassium Chloride 20 MEQ Tab.ER PO ONE (01:20)
[2022-10-24 07:00] LABS: CARBON DIOXIDE,CO2 20.8 mmol/L (21.0-32.0)
== END 2022-10-24 11:10 | disposition home or self-care (01) ==
LOC: MW.ED 16:57 → MW.MS 19:40
PROVIDERS: ADMIT Internal Medicine; ATTEND Internal Medicine
DX: E87.6 Hypokalemia (principal); R19.7 Diarrhea, unspecified; R50.9 Fever, unspecified; F41.9 Anxiety disorder, unspecified; E66.9 Obesity, unspecified; Z20.822 Contact with and (suspected) exposure to COVID-19; Z88.8 Allergy status to other drugs, medicaments and biological substances; Z68.28 Body mass index [BMI] 28.0-28.9, adult; Z79.899 Other long term (current) drug therapy
CPT/HCPCS: 0240U; 36415; 80053; 81001; 83735; 85025; 86850; 86900; 86901; 87086; 93005; 93010; 96361; 96365; 99221; 99284; 99285-25; A9270-GY; J3480; J7030

== ENCOUNTER 2024-01-02 14:51 | Emergency (ER) | payer BC ==
[2024-01-02 15:13] LABS: BASOPHILS ABSOLUTE AUTO 0.03 K/uL (0.00-0.20); BASOPHILS PERCENT AUTO 0.3 % (0.0-1.0); EOSINOPHILS ABSOLUTE AUTO 0.07 K/uL (0.00-0.45); EOSINOPHILS PERCENT AUTO 0.8 % (0.0-6.0); HEMATOCRIT 38.2 % (37.0-47.0); HEMOGLOBIN 12.7 g/dL (12.0-16.0); IMMATURE GRAN ABSOLUTE AUTO 0.03 K/uL (0.00-0.05); IMMATURE GRAN PERCENT AUTO 0.3 % (0.0-0.4); LYMPHOCYTES ABSOLUTE AUTO 1.81 K/uL (1.00-4.80); LYMPHOCYTES PERCENT AUTO 19.9 % (24.0-44.0); MEAN CORPUSCULAR HEMOGLOBIN 28.3 pg (28.0-32.0); MEAN CORPUSCULAR HGB CONC 33.2 g/dL (32.0-36.0); MEAN CORPUSCULAR VOLUME 85.1 fL (83.0-99.0); MONOCYTES ABSOLUTE AUTO 0.44 K/uL (0.00-0.80); MONOCYTES PERCENT AUTO 4.8 % (0.0-8.0); NEUTROPHILS ABSOLUTE AUTO 6.71 K/uL (1.80-7.70); NEUTROPHILS PERCENT AUTO 73.9 % (41.0-71.0); PLATELET COUNT,PLT 357 K/uL (150-400); RED BLOOD CELL COUNT 4.49 M/uL (4.10-5.30); WHITE BLOOD CELL COUNT,WBC 9.09 K/uL (3.9-11.3)
[2024-01-02 15:49] LABS: ALBUMIN 3.5 g/dL (3.4-5.0); BILIRUBIN TOTAL 0.4 mg/dL (0.2-1.0); CALCIUM 8.3 mg/dL (8.5-10.1); CARBON DIOXIDE,CO2 25.7 mmol/L (21.0-32.0); CREATININE 0.7 mg/dL (0.6-1.0); EST CRCL DRUG DOSING (CG) 88.25 mL/min; POTASSIUM,K 3.5 mmol/L (3.5-5.1); PROTEIN TOTAL,TP 7.1 g/dL (6.4-8.2)
[2024-01-02 16:32] LABS: APPEARANCE,URINE CLEAR; BILIRUBIN,URINE NEGATIVE (NEGATIVE); COLOR,URINE YELLOW; GLUCOSE,URINE NEGATIVE (NEGATIVE); KETONES,URINE NEGATIVE (NEGATIVE); LEUKOCYTE ESTERASE,URINE NEGATIVE (NEGATIVE); NITRITE,URINE NEGATIVE (NEGATIVE); OCCULT BLOOD,URINE SMALL (NEGATIVE); PH,URINE 7.5 (5.0-8.0); PROTEIN,URINE NEGATIVE (NEGATIVE); UROBILINOGEN,URINE 0.2 EU/dL (<2.0)
[2024-01-02 16:47] LABS: BACTERIA,URINE 2+ (NEGATIVE); EPITHELIAL CELLS,URINE FEW (NONE-FEW); MUCUS,URINE MODERATE (NONE-MOD); RBC,URINE 0-2 (0-2/HPF); WBC,URINE NONE SEEN (0-5/HPF)
== END 2024-01-02 16:57 | disposition home or self-care (01) ==
LOC: MW.ED 14:51
DX: O20.9 Hemorrhage in early pregnancy, unspecified (principal); Z75.8 Other problems related to medical facilities and other health care; Z88.8 Allergy status to other drugs, medicaments and biological substances; Z3A.08 8 weeks gestation of pregnancy
CPT/HCPCS: 36415; 76817; 76817-26; 80053; 81001; 84702; 85025; 86900; 86901; 99282; 99284

== ENCOUNTER 2024-01-23 16:57 | Emergency (ER) | payer BC ==
[2024-01-23] MEDS: traMADol 50 MG Tab PO STA (19:18)
== END 2024-01-23 20:19 | disposition home or self-care (01) ==
LOC: MW.ED 16:57
DX: S99.922A Unspecified injury of left foot, initial encounter (principal); Z75.8 Other problems related to medical facilities and other health care; Z88.8 Allergy status to other drugs, medicaments and biological substances; Z79.899 Other long term (current) drug therapy; W22.8XXA Striking against or struck by other objects, initial encounter; Y93.89 Activity, other specified
CPT/HCPCS: 73630; 99283; A9270

== ENCOUNTER 2024-04-30 18:30 | Emergency (ER) | payer BC ==
[2024-04-30 18:51] LABS: APPEARANCE,URINE CLEAR; BILIRUBIN,URINE NEGATIVE (NEGATIVE); COLOR,URINE YELLOW; GLUCOSE,URINE NEGATIVE (NEGATIVE); KETONES,URINE NEGATIVE (NEGATIVE); LEUKOCYTE ESTERASE,URINE TRACE (NEGATIVE); NITRITE,URINE NEGATIVE (NEGATIVE); OCCULT BLOOD,URINE LARGE (NEGATIVE); PROTEIN,URINE NEGATIVE (NEGATIVE); UROBILINOGEN,URINE 0.2 EU/dL (<2.0)
[2024-04-30 19:08] LABS: BACTERIA,URINE RARE (NEGATIVE); EPITHELIAL CELLS,URINE FEW (NONE-FEW); RBC,URINE 0-1 (0-2/HPF); WBC,URINE 0-1 (0-5/HPF)
[2024-04-30 19:26] LABS: BASOPHILS ABSOLUTE AUTO 0.03 K/uL (0.00-0.20); BASOPHILS PERCENT AUTO 0.3 % (0.0-1.0); EOSINOPHILS ABSOLUTE AUTO 0.26 K/uL (0.00-0.45); EOSINOPHILS PERCENT AUTO 2.4 % (0.0-6.0); HEMATOCRIT 38.6 % (37.0-47.0); HEMOGLOBIN 12.6 g/dL (12.0-16.0); IMMATURE GRAN ABSOLUTE AUTO 0.03 K/uL (0.00-0.05); IMMATURE GRAN PERCENT AUTO 0.3 % (0.0-0.4); LYMPHOCYTES ABSOLUTE AUTO 2.73 K/uL (1.00-4.80); LYMPHOCYTES PERCENT AUTO 25.1 % (24.0-44.0); MEAN CORPUSCULAR HEMOGLOBIN 27.8 pg (28.0-32.0); MEAN CORPUSCULAR HGB CONC 32.6 g/dL (32.0-36.0); MEAN CORPUSCULAR VOLUME 85.2 fL (83.0-99.0); MONOCYTES ABSOLUTE AUTO 0.56 K/uL (0.00-0.80); MONOCYTES PERCENT AUTO 5.2 % (0.0-8.0); NEUTROPHILS ABSOLUTE AUTO 7.25 K/uL (1.80-7.70); NEUTROPHILS PERCENT AUTO 66.7 % (41.0-71.0); PLATELET COUNT,PLT 348 K/uL (150-400); RED BLOOD CELL COUNT 4.53 M/uL (4.10-5.30); WHITE BLOOD CELL COUNT,WBC 10.86 K/uL (3.9-11.3)
[2024-04-30 19:49] LABS: A/G RATIO 0.9 (0.9-1.6); ALBUMIN 3.8 g/dL (3.4-5.0); BILIRUBIN TOTAL 0.4 mg/dL (0.2-1.0); CALCIUM 9.4 mg/dL (8.5-10.1); CREATININE 0.6 mg/dL (0.6-1.0); EST CRCL DRUG DOSING (CG) 113.36 mL/min; PROTEIN TOTAL,TP 7.9 g/dL (6.4-8.2)
== END 2024-04-30 20:50 | disposition home or self-care (01) ==
LOC: MW.ED 18:30
DX: O20.9 Hemorrhage in early pregnancy, unspecified (principal); R82.71 Bacteriuria; E66.9 Obesity, unspecified; Z88.8 Allergy status to other drugs, medicaments and biological substances; Z75.8 Other problems related to medical facilities and other health care; Z68.27 Body mass index [BMI] 27.0-27.9, adult; Z3A.01 Less than 8 weeks gestation of pregnancy
CPT/HCPCS: 36415; 76817; 76817-26; 80053; 81001; 84702; 85025; 86900; 86901; 99284

== ENCOUNTER 2025-02-15 | Inpatient (IN) | payer OTHER, BC ==
[2025-02-15] MEDS ORDERED: Sodium Chloride 0.9% 2.5 ML Syringe FLUSH PRN (01:12)
[2025-02-15] MEDS ORDERED: Carboprost Tromethamine 250 MCG/1 mL Vial IM PRN (01:12)
[2025-02-15] MEDS ORDERED: Water For Irrigation,Sterile 1,000 ML Container IRR PRN (01:12)
[2025-02-15] MEDS ORDERED: Sodium Chloride 0.9% 10 ML Syringe FLUSH PRN (01:12)
[2025-02-15] MEDS ORDERED: Butorphanol 1 MG/ML SDV IVPUSH PRN (01:12)
[2025-02-15] MEDS ORDERED: Oxytocin/0.9 % Sodium Chloride 30 UNIT/500 ML BAG IV SCH ×2 (01:15→01:20)
[2025-02-15] MEDS ORDERED: Misoprostol 25 MCG (1/4 of 100 MCG) Tab VAG PRN (01:18)
[2025-02-15] MEDS ORDERED: Terbutaline 1 MG/ML SDV SUBCUT PRN (01:18)
[2025-02-15 01:29] LABS: MEAN PLATELET VOLUME 10.0 fL (9.4-12.3); NRBC ABSOLUTE 0.00 K/uL (0.00-0.02); NRBC PERCENT 0.0 /100WBC (0.0-0.2); PLATELET COUNT,PLT 300 K/uL (150-400); RED BLOOD CELL COUNT 4.75 M/uL (4.10-5.30); WHITE BLOOD CELL COUNT,WBC 10.45 K/uL (3.9-11.3)
[2025-02-15] MEDS: Misoprostol 25 MCG (1/4 of 100 MCG) Tab VAG PRN (01:55)
[2025-02-15] MEDS: Lactated Ringers 1,000 ML IV SCH (01:56)
[2025-02-15] MEDS: Oxytocin/0.9 % Sodium Chloride 30 UNIT/500 ML BAG IV SCH (07:42)
[2025-02-15] MEDS ORDERED: Ropivacaine HCl/PF 200 ML ONE (09:31)
[2025-02-15] MEDS ORDERED: dexmedeTOMIDine HCl 200 MCG/2 ML SDV ONE (09:31)
[2025-02-15] MEDS: Ropivacaine HCl/PF 400 MG in Premix Bag 1 BAG EPIDUR SCH (09:45)
[2025-02-15] MEDS ORDERED: ePHEDrine 50 MG/ML SDV IVPUSH PRN (09:54)
[2025-02-15] MEDS ORDERED: dexmedeTOMIDine HCl 200 MCG/2 ML SDV EPIDUR SCH (10:00)
[2025-02-15 12:32] LABS: PH,UMBILICAL ARTERIAL 7.3 (7.18-7.38); PH,UMBILICAL VENOUS 7.36 (7.25-7.45)
[2025-02-15] MEDS: Benzocaine/Menthol 20%-0.5% Spray 78 GM Cannister TOP PRN (15:52)
[2025-02-15] MEDS: Witch Hazel Medicated Pads 40/Jar TOP PRN (15:53)
[2025-02-15] MEDS: Lanolin 100% Cream 7 GM Tube TOP PRN (15:53)
[2025-02-16] MEDS: Measles, Mumps & Rubella Vaccine 0.5 ML SDV SUBCUT ONE (14:33)
== END 2025-02-16 15:00 | disposition home or self-care (01) | DRG 807 ==
LOC: MW.OB → OBSVTOIN 11:59 → MW.OB 11:59
PROVIDERS: ADMIT Obstetrics & Gynecology; ATTEND Obstetrics & Gynecology
PROC: 10E0XZZ Delivery of Products of Conception, External Approach (ICD-10-PCS; principal; 2025-02-15)
PROC: 3E0DXGC Introduction of Other Therapeutic Substance into Mouth and Pharynx, External Approach (ICD-10-PCS; 2025-02-15)
PROC: 4A1HXCZ Monitoring of Products of Conception, Cardiac Rate, External Approach (ICD-10-PCS; 2025-02-15)
PROC: 10907ZC Drainage of Amniotic Fluid, Therapeutic from Products of Conception, Via Natural or Artificial Opening (ICD-10-PCS; 2025-02-15)
PROC: 3E0R3BZ Introduction of Anesthetic Agent into Spinal Canal, Percutaneous Approach (ICD-10-PCS; 2025-02-15)
PROC: 00HU33Z Insertion of Infusion Device into Spinal Canal, Percutaneous Approach (ICD-10-PCS; 2025-02-15)
DX: O99.844 Bariatric surgery status complicating childbirth (principal); Z37.0 Single live birth; Z3A.39 39 weeks gestation of pregnancy
CPT/HCPCS: 36415; 51702; 59025; 59409; 82803; 85014; 85018; 85027; 86592; 86850; 86900; 86901; 90471; 90707; A9270-GY; J0665; J2371; J2590; J2795; J7120